=== PATIENT | female | born 1995 | race Two or more races ===

== ENCOUNTER 2022-10-28 15:48 | Emergency (ER) | payer OTHER ==
[~2022-10-28] VITALS: Ht 165.1 cm; Wt 92.1 kg
[2022-10-28] MEDS ORDERED: BACTRIM DS TAB1 EACH PO (19:47)
== END 2022-10-28 21:08 | disposition home or self-care (01) ==
LOC: ER 15:48
DX: N39.0 Urinary tract infection, site not specified (principal); R10.9 Unspecified abdominal pain; Z88.8 Allergy status to other drugs, medicaments and biological substances

== ENCOUNTER 2022-12-12 19:16 | Emergency (ER) | payer OTHER ==
[~2022-12-12] VITALS: Ht 157.5 cm; Wt 56.7 kg
[~2022-12-12 19:16] MED LIST: BACTRIM DS TAB1 EACH PO
[2022-12-12] MEDS ORDERED: DICLOFENAC SODI75 MG PO (22:36)
== END 2022-12-12 22:41 | disposition home or self-care (01) ==
LOC: ER 19:16
DX: R10.11 Right upper quadrant pain (principal); Z88.8 Allergy status to other drugs, medicaments and biological substances